=== PATIENT | female | born 1955 | race Caucasian/White ===

== ENCOUNTER 2019-09-06 03:37 | Emergency (ER) | payer BC ==
[~2019-09-06] VITALS: Ht 160 cm; Wt 93.0 kg
[~2019-09-06 03:37] MED LIST: AMBIEN10 MG PO
--- OUTSIDE RECORDS SUMMARY | 2019-09-06 03:40 | XMS REPORT | Summary of Care ---
Author Author [facility] Unknown Address Unknown Phone Unavailable Care Team Providers Care Curing Bin Operator Name Role Phone LYNNETTE CHEN M.D. Unavailable Unavailable DUANE HARVEY GALYNNETTE Unavailable Unavailable Unavailable Unavailable Functional Status Name Dates Details Functional status health issues are not documented Status: Name Dates Details Cognitive status health issues are not documented Status: Problems Name Dates Details High cholesterol (272.0, E78.00) Status: Active Breast cancer screening (V76.10, Z12.31) Status: Active Urinary frequency (788.41, R35.0) Status: Active Medications Name Dates Details Zolpidem Tartrate 10 MG Oral Tablet * Start : 01-Sep-2018 Active Atorvastatin Calcium 80 MG Oral Tablet * Refills: 0 * Start : 01-Sep-2018 Active Linzess 145 MCG Oral Capsule * Refills: 0 * Start : 01-Sep-2018 Active ALPRAZolam 0.5 MG Oral Tablet * Refills: 0 * Start : 01-Sep-2018 Active medroxyPROGESTERone Acetate 10 MG Oral Tablet * Refills: 0 * Start : 01-Sep-2018 Active Allergies and Adverse Reactions Name Dates Details No Known Allergies (Allergy) Status: Active Past Medical History Name Dates Details History of high cholesterol (V12.29, Z86.39) Status: Resolved Procedures Procedure Dates Details [[facility]] CULTURE, URINE, ROUTINE Date: 06-Apr-2019 History of Cholecystectomy Completed History of Tubal ligation Completed History of Dilation And Curettage Completed Immunization Name Dates Details Immunizations not documented Family History Name Dates Details No pertinent family history (V49.89, Z78.9) Status: Active Social History Name Dates Details - Status: Name Dates Details Never smoker Vital Signs Date Test Result Details [id number] BP Systolic 132 mm[Hg] Status: Comments: Location: RUE; Position: Sitting BP Diastolic 88 mm[Hg] Status: Comments: Location: RUE; Position: Sitting Height 62 in Status: Weight 205 lb Status: Body Mass Index Calculated 37.5 kg/m2 Status: Body Surface Area Calculated 1.93 m2 Status: Temperature 98.3 f Status: Comments: Method: Oral Heart Rate 108 /min Status: Respiration Rate 18 /min Status: Results Date Description Value Details Results not documented Plan of Care Name Dates Details Planned Observations Planned Goals not documented Interventions Provided Labs/Procedures/Imaging* [QL] CULTURE, URINE, ROUTINE; To Be Done: 06 Apr 2019 Discussion/Summary* 64 year old female who is s/p HSC, D&C, Mirena IUD placement on 09/28/18 for postmenopausal bleeding down to anemia, unopposed estrogen use, and thickened endometrium, returning today with menopausal complaints: * 1. Decreased orgasms: Discussed that while additional estrogen would likely help this issue, the risks with restarting estrogen 10 years after age of menopause, including increased cardiovascular events, negates her from being a good candidate for estrogen. Will not proceed with prescription of estrogen. Patient then requesting a female libido enhancement drug; however, the research states that that such pills only enhance a female's pleasure by about one time per month. Patient declined. No further interventions today. * 2. Weight gain: Likely a combination of depression, antidepressant side effects, fatigue and menopause. Counseled patient for improved sleep hygiene, exercise and dietary changes. * 3. Urinary frequency: Obtain UA with reflex to culture today to rule out UTI. * 4. Mirena IUD - strings visible on pelvic exam. * RTC 1 year for WWE * Pt examined and counseled with Dr. Chen. * RTC 1 year. * Pt examined and counseled with Dr. Chen. * Discussed above with patient (spent 25 minutes face to face). Questions answered. Instructions Name Dates Details Instructions not documented Encounters Appointment; LYNNETTE CHEN M.D. Encounter Diagnosis: Problem not documented On: 01-Sep-2018 15:00 Appointment; LYNNETTE CHEN M.D. Encounter Diagnosis: Problem not documented On: 28-Sep-2018 9:00 Appointment; LYNNETTE CHEN M.D. Encounter Diagnosis: Problem not documented On: 10-Nov-2018 14:20 Appointment; LYNNETTE CHEN M.D. Encounter Diagnosis: Problem not documented On: 06-Apr-2019 14:40
[2019-09-06] MEDS ORDERED: HYDROCODONE/APAP 10MG-325MG TAB PO ONE (04:00)
--- NOTE | 2019-09-06 04:20 | Diagnostic Imaging Report ---
Exam: Right knee radiographs-3 views Clinical History: Status post fall. Comparison: None. Findings: No evidence of acute fracture, malalignment, or soft tissue abnormality. Impression: No acute radiographic abnormality. Signed by: Dr. Julia Becerra MD on 09/06/2019 4:17 AM
--- NOTE | 2019-09-06 04:22 | Diagnostic Imaging Report ---
Exam: Right ankle radiographs-3 views Clinical History: Status post fall. Comparison: None. Findings/Impression: There is a transverse, intra-articular, minimally displaced fracture of the lateral malleolus. There is overlying soft tissue edema. The ankle mortise is preserved. Signed by: Dr. Julia Becerra MD on 09/06/2019 4:19 AM
== END 2019-09-06 04:50 | disposition home or self-care (01) ==
LOC: ER 03:37
DX: S82.62XA Displaced fracture of lateral malleolus of left fibula, initial encounter for closed fracture (principal); S80.01XA Contusion of right knee, initial encounter; W01.0XXA Fall on same level from slipping, tripping and stumbling without subsequent striking against object, initial encounter; Y93.01 Activity, walking, marching and hiking; Y92.018 Other place in single-family (private) house as the place of occurrence of the external cause; E78.5 Hyperlipidemia, unspecified
CPT/HCPCS: 99283

== ENCOUNTER → 2023-11-20 | Day surgery (SDC) | payer MEDICARE, OTHER ==
[2023-11-19 12:12] LABS: BASOPHILS # (AUTO) 0.1 (0.0-0.1); BASOPHILS % 0.6 % (0.0-1.0); EOSINOPHILS # (AUTO) 0.2 (0.0-0.4); EOSINOPHILS % 1.9 % (0.0-6.0); HEMATOCRIT 42.7 % (34.2-44.1); HEMOGLOBIN 13.3 g/dL (12.0-16.0); LYMPHOCYTES # (AUTO) 1.7 (1.0-3.2); LYMPHOCYTES % 21.7 % (18.0-39.1); MEAN CORPUSCULAR HEMOGLOBIN 30.5 pg (28-32); MEAN CORPUSCULAR HGB CONC 31.1 g/dL (31-35); MEAN CORPUSCULAR VOLUME 97.9 fL (81-99); MONOCYTES % 13.3 % (4.4-11.3); NEUTROPHILS # (AUTO) 4.9 (2.1-6.9); NEUTROPHILS % 62.2 % (38.7-80.0); PLATELET COUNT 332 x10e3/uL (140-360); RED BLOOD COUNT 4.36 x10e6/uL (3.6-5.1); RED CELL DISTRIBUTION WIDTH 13.9 % (11.7-14.4); WHITE BLOOD COUNT 7.82 x10e3/uL (4.8-10.8)
[~2023-11-20] MED LIST changes: +ACETAMINOPHEN325 M1 PO; +BUPROPION XL300 MG PO; +DEXAMETHASONE SOD PHOS 10 MG/1 ML VIAL ONE; +DEXAMETHASONE SOD PHOS INJ 4 MG/ML SDV ONE; +FENTANYL CITRATE/PF 100MCG/2 ML INJ ONE; +GLYCOPYRROLATE INJ 0.2 MG/ML VIAL ONE; +HYDROCODON-ACE1 EA11 PO; +HYDROMORPHONE 1MG/1ML INJ ONE; +LACTATED RINGER'S 1,000 ML ONE; +LIDOCAINE HCL 2% LOCAL INJ 5 ML SDV VIAL INJ ONE; +METOCLOPRAMIDE HCL 10 MG/2ML VIAL ONE; +MIDAZOLAM HCL 2 MG/2 ML VIAL ONE; +NEOSTIGMINE 1 MG/ML 10ML VIAL ONE; +ONDANSETRON HCL INJ 2MG/ML 2ML 2 MG/ML VIAL ONE; +ONDANSETRON ODT4 MG PO; +PROPOFOL IV EMULSION 10 MG/ML 20 ML VIAL ONE; +ROPIVACAINE 0.5% 5 MG/ML 30 ML SDV ONE; +SEVOFLURANE INHAL SOLN 250 ML PEN BTL ONE; +TYLENOL #3 PO
[2023-11-20 11:39] VITALS: TEMP 98.7
[2023-11-20] MEDS: FENTANYL CITRATE/PF 100MCG/2 ML INJ ONE ×2 (11:49→12:00)
[2023-11-20 12:45] VITALS: BP 135/89; PULSE 90; RESP 16; O2SAT 96
== END | disposition home or self-care (01) ==
LOC: OR 08:07
PROVIDERS: ATTEND Specialist
DX: S82.842A Displaced bimalleolar fracture of left lower leg, initial encounter for closed fracture (principal); Z91.199 Patient's noncompliance with other medical treatment and regimen due to unspecified reason; E66.01 Morbid (severe) obesity due to excess calories; F41.9 Anxiety disorder, unspecified; F32.A Depression, unspecified; W17.89XA Other fall from one level to another, initial encounter; Y92.009 Unspecified place in unspecified non-institutional (private) residence as the place of occurrence of the external cause; Z01.810 Encounter for preprocedural cardiovascular examination; Z01.812 Encounter for preprocedural laboratory examination; Z01.818 Encounter for other preprocedural examination; Z79.899 Other long term (current) drug therapy; Z68.38 Body mass index [BMI] 38.0-38.9, adult
CPT/HCPCS: 27814; 36415; 71046; 76000; 85025; 93005; C1713 ×7; J0690; J1100 ×2; J1170; J2001; J2250; J2405; J2704; J2710; J2765; J2795; J3010; J7121